=== PATIENT | male | born 1985 | race Caucasian/White ===

== ENCOUNTER → 2018-07-01 16:30 | Outpatient (CLI) | payer BC, SELFPAY ==
[2018-07-01 18:01] LABS: BUN Creatinine Ratio 18.8 (6-22); Blood Urea Nitrogen 15 mg/dL (9-20); Calcium 10.1 mg/dL (8.4-10.2); Carbon Dioxide 25 mmol/L (22-32); Chloride 100 mmol/L (98-107); Estimated Glomerular Filt Rate > 60.0 mL/min (>60); Glucose 91 mg/dL (70-100); HEMOLYSIS 16 (0-50); Sodium 140 mmol/L (137-145)
== END ==
PROVIDERS: PCP Family Medicine; Visit Provider Family Medicine
DX: I10 Essential (primary) hypertension (principal)
CPT/HCPCS: 36415; 80048

== ENCOUNTER 2018-08-13 20:28 | Emergency (ER) | payer BC, SELFPAY ==
--- NOTE | 2018-08-13 20:31 | ED_ITS ---
HPI - Extremity Injury (Upper) <GAVI Pitts - Last Filed: 08/13/18 22:04> General Chief Complaint: Wound/Laceration Stated Complaint: CUT RT WRIST Time Seen by Provider: 08/13/18 20:30 Source: patient Mode of arrival: ambulatory Limitations: no limitations History of Present Illness HPI narrative: 33-year-old male with history of hypertension and is a nonsmoker here for complaint of laceration to his right wrist. He states that he was using a razor knife to cut some material while working on a vehicle at home this evening when he accidentally cut his right wrist. He states the blade was clean. He denies any other injuries. Bleeding is controlled with pressure and bandage. He thinks that his last tetanus was over 10 years ago. No other concerns or complaints at this time. MD complaint: injury to: right and wrist Related Data Previous Rx's Medication Instructions Recorded phenytoin sodium extended 100 mg PO BID #360 cap 07/04/17 [Dilantin Extended] dextroamphetamine-amphetamine 20 1 tab PO TID #75 tab 07/01/18 mg tablet lisinopril 10 mg tablet 10 mg PO QDAY #90 tab 07/01/18 Allergies Allergy/AdvReac Type Severity Reaction Status Date / Time Sulfa (Sulfonamide Allergy Mild RED FACE, Verified 08/13/18 20:51 Antibiotics) GAINES Review of Systems <GAVI Pitts - Last Filed: 08/13/18 22:04> Constitutional Denies chills, Denies fever(s), Denies lethargy and Denies weakness Eyes Denies change in vision, Denies eye discharge, Denies irritation and Denies loss of vision ENT Ears, Nose, Mouth, and Throat: Denies change in voice, Denies neck pain and Denies sore throat Cardiovascular Denies chest pain, Denies irregular heart rhythm, Denies lightheadedness, Denies palpitations, Denies dyspnea, Denies dyspnea on exertion and Denies orthopnea Respiratory Denies cough, Denies dyspnea, Denies dyspnea on exertion and Denies wheezing Gastrointestinal Gastrointestinal: Denies abdominal pain, Denies change in bowel habits, Denies diarrhea, Denies nausea and Denies vomiting Genitourinary Denies hematuria, Denies flank pain, Denies urinary incontinence and Denies urinary urgency Musculoskeletal Denies neck pain Comments: Laceration to right wrist Integumentary/Breasts Denies pruritus, Denies erythema, Denies rash and Denies wounds Neurologic Denies confusion, Denies loss of vision and Denies weakness Psychiatric Denies anxiety, Denies confusion, Denies depression, Denies homicidal ideation and Denies suicidal ideation Endocrine Denies palpitations Hematologic/Lymphatic Denies easy bruising Allergic/Immunologic Denies wheezing Exam <GAVI Pitts - Last Filed: 08/13/18 22:04> Initial Vital Signs Initial Vital Signs: Vital Signs Temperature 98.7 F 08/13/18 20:35 Pulse Rate 109 H 08/13/18 20:35 Respiratory Rate 18 08/13/18 20:35 Blood Pressure 176/90 H 08/13/18 20:35 Pulse Oximetry 100 08/13/18 20:35 Const General: cooperative and well developed Nutritional Appearance: well nourished Orientation: alert, awake, oriented x3 and not confused HENKY Mouth: oral mucosae normal, oropharynx normal and moist mucous membranes Eyes Conjunctivae: conjunctivae normal Sclera: sclerae normal Pupils: PERRL EOM: EOM intact bilaterally Resp Effort & Inspection: normal respiratory effort, able to speak in complete sentences, no respiratory distress and no use of accessory muscles Auscultation: clear to auscultation bilaterally, no rales, no rhonchi and no wheezes Cardio Rate: regular rate Rhythm: regular rhythm Heart Sounds: no click, no gallops, no murmurs and no rubs Skin General: no rashes or lesions noted, No jaundice and No petechiae Neuro General: alert, oriented x3, gait normal and no focal motor deficits Speech: speech normal Extrem Other: 1.5 cm linear laceration to the ulnar palmar aspect of the right proximal hand. Distal sensation is intact. Distal range of motion is intact. Distal cap refill less than 2 sec. <Rosalia Hill DO - Last Filed: 08/14/18 00:47> Initial Vital Signs Initial Vital Signs: Vital Signs Temperature 98.7 F 08/13/18 20:35 Pulse Rate 109 H 08/13/18 20:35 Respiratory Rate 18 08/13/18 20:35 Blood Pressure 176/90 H 08/13/18 20:35 Pulse Oximetry 100 08/13/18 20:35 Procedures <GAVI Pitts - Last Filed: 08/13/18 22:04> Laceration Repair Laceration 1: Site: hand Side (If applicable): right Size (cm): 1.5 Description: linear Depth: simple, single layer Local Anesthetic: lidocaine 1% Amount of anesthesia used (mL): 2 Pre-repair: wound explored and irrigated extensively Skin layer closed with: nylon Size (cm): 5-0 Number of sutures: 3 Technique: simple, interrupted Course <GAVI Pitts - Last Filed: 08/13/18 22:04> Orders Ordered: Discontinued Medications Diphtheria/Tetanus/Acell Pertussis (Adacel) 0.5 ml IM .ONCE ONE Stop: 08/13/18 20:51 Last Admin: 08/13/18 21:10 Dose: 0.5 ml Vital Signs - 8 hr 08/13/18 20:35 08/13/18 21:29 Temperature 98.7 F Pulse Rate 109 H 85 Respiratory Rate 18 16 Blood Pressure [Left Arm] 176/90 H 126/81 Pulse Oximetry 100 100 <Rosalia Hill DO - Last Filed: 08/14/18 00:47> Orders Ordered: Discontinued Medications Diphtheria/Tetanus/Acell Pertussis (Adacel) 0.5 ml IM .ONCE ONE Stop: 08/13/18 20:51 Last Admin: 08/13/18 21:10 Dose: 0.5 ml Vital Signs - 8 hr 08/13/18 20:35 08/13/18 21:29 Temperature 98.7 F Pulse Rate 109 H 85 Respiratory Rate 18 16 Blood Pressure [Left Arm] 176/90 H 126/81 Pulse Oximetry 100 100 [facility] - Extremity Injury (Upper) <GAVI Pitts - Last Filed: 08/13/18 22:04> [facility] Narrative Medical decision making narrative: Laceration to the right palm was closed with 3 5-0 nylon simple interrupted sutures with good wound closure no complications. Wound dressed with bacitracin and a dressing. Sutures to be removed in 7-10 days. [id number] Tylenol or Motrin as needed for any discomfort. Follow up with primary care provider. Tetanus was updated in the emergency room. For any worsening symptoms or signs of infection return to the emergency room. Keep initial dressing on clean and dry for 24-36 hr afterwards stress wound daily with bacitracin dressing until healed. Discharge Plan Departure Patient Disposition: Home Clinical Impression: Laceration of right palm Discharge Date/Time: 08/13/18 21:36 Interventions: ED Discharge Assessment Last Done: 08/13/18 21:34 Instructions: DI for Laceration Repair Activity Restrictions/Additional Instructions: Laceration to right palm was closed with 3 sutures. Sutures to be removed in 7- 10 days. [id number] Tylenol or Motrin as needed for any discomfort. Follow up with primary care provider. Tetanus was updated in the emergency room. For any worsening symptoms or signs of infection return to the emergency room. Keep initial dressing on clean and dry for 24-36 hr afterwards stress wound daily with bacitracin dressing until healed. Prescriptions: No Action phenytoin sodium extended [Dilantin Extended] 100 MG capsule 100 mg PO BID Qty: 360 RF: 3 dextroamphetamine-amphetamine [Adderall] 20 mg tablet 1 tab PO TID Qty: 75 RF: 0 lisinopril 10 mg tablet 10 mg PO QDAY Qty: 90 RF: 3 Referrals: Shellie Lopez DO [Primary Care Provider] - <Rosalia Hill DO - Last Filed: 08/14/18 00:47> Cosign ED Attending Abnerature Attestation: I was immediately available in the department for consultation. Documentation has been reviewed. I agree with assessment and plan.
[2018-08-13 20:34] VITALS: BMI 32.1
[2018-08-13 20:35] VITALS: BP 176/90; PULSE 109; RESP 18; TEMP 37.1; O2SAT 100
[2018-08-13] MEDS: TET,DIPH,PERTUSS(ACELL),VAC/PF 0.5 ML SYRINGE IM (21:10)
[2018-08-13 21:29] VITALS: BP 126/81; PULSE 85; RESP 16; O2SAT 100
== END 2018-08-13 21:36 | disposition home or self-care (01) ==
PROVIDERS: Emergency Provider Nurse Practitioner Family; Family Provider Family Medicine; PCP Family Medicine
DX: S61.411A Laceration without foreign body of right hand, initial encounter (principal); W26.0XXA Contact with knife, initial encounter
CPT/HCPCS: 12001; 90471; 99283; 90715

== ENCOUNTER → 2021-04-10 08:09 | Outpatient (CLI) | payer OTHER, SELFPAY ==
--- NOTE | 2021-04-10 | DI.US.S_ITS ---
PROCEDURE: US ABDOMEN LIMITED INDICATIONS: ABNORMAL LFTS TECHNIQUE: Real-time focused scanning was performed of the abdomen, with image documentation. COMPARISON: None. FINDINGS: The liver demonstrates increased size. The liver demonstrates generalized mildly increased echogenicity. This decreases ultrasound sensitivity for detection of hepatic masses. The main portal vein demonstrates normal size and demonstrates normal appearing, hepatopetal flow. No findings of gallstones or sludge are seen. The gallbladder wall is not thickened, measuring 3 mm or less. No specific pericholecystic fluid is seen. The sonographic Saunders sign is negative. There is no biliary dilatation, the common bile duct measures 4 mm. No significant pancreatic abnormality is seen on these images. IMPRESSION: Enlarged, fatty liver. Dictated by: Navdeep Meza M.D. on 04/10/2021 at 9:05 Approved by: Navdeep Meza M.D. on 04/10/2021 at 9:06
== END ==
PROVIDERS: Family Provider Family Medicine; PCP Family Medicine; Referring Provider Family Medicine; Visit Provider Family Medicine
DX: R94.5 Abnormal results of liver function studies (principal); K76.0 Fatty (change of) liver, not elsewhere classified
CPT/HCPCS: 76705

== ENCOUNTER → 2022-01-30 11:51 | Outpatient (CLI) | payer OTHER, SELFPAY ==
--- NOTE | 2022-01-30 | DI.RAD.S_ITS ---
PROCEDURE: XR FINGER LT MIN 2V INDICATIONS: SWELLING, REDNESS OF LEFT INDEX FINGER TECHNIQUE: AP hand, 2 views of the left 2nd finger(s) acquired. COMPARISON: None. FINDINGS: Bones: No fractures or dislocations. No suspicious bony lesions. Soft tissues: No suspicious soft tissue calcifications. IMPRESSION: No fracture. No osseous lesion. If symptoms and/or clinical suspicion for pathology persists, further assessment with repeat radiographs (7-10 days) or advanced imaging (e.g. CT, MRI or bone scan) should be considered. Dictated by: Vane Gudino MD, PhD on 01/30/2022 at 16:41 Approved by: Vane Gudino MD, PhD on 01/30/2022 at 16:42
== END ==
PROVIDERS: Family Provider Family Medicine; PCP Family Medicine; Referring Provider Family Medicine; Visit Provider Family Medicine
DX: M79.89 Other specified soft tissue disorders (principal)
CPT/HCPCS: 73140

== ENCOUNTER → 2022-12-15 11:24 | Outpatient (CLI) | payer OTHER, SELFPAY ==
--- NOTE | 2022-12-15 11:26 | DI.RAD.S_ITS ---
PROCEDURE: XR FINGER LT MIN 2V INDICATIONS: Swelling TECHNIQUE: AP hand, 2 views of the 4th finger(s) acquired. COMPARISON: [facility], , XR FINGER LT MIN 2V, 01/30/2022, 11:44. FINDINGS: Bones: No fractures or dislocations. No suspicious bony lesions. Soft tissues: No suspicious soft tissue calcifications. IMPRESSION: No acute fracture. No osseous lesion. If symptoms and/or clinical suspicion for pathology persist, further assessment with repeat, or advanced imaging (e.g., CT, MRI, or bone scan) may be helpful for further assessment. Dictated by: Jaylen Scanlon M.D. on 12/15/2022 at 11:03 Approved by: Jaylen Scanlon M.D. on 12/15/2022 at 11:03
== END ==
PROVIDERS: Family Provider Family Medicine; PCP Family Medicine; Referring Provider Nurse Practitioner Family; Visit Provider Nurse Practitioner Family
DX: R22.32 Localized swelling, mass and lump, left upper limb (principal)
CPT/HCPCS: 73140

== ENCOUNTER → 2023-01-17 07:50 | Outpatient (CLI) | payer OTHER, SELFPAY ==
[2023-01-17 09:18] LABS: Add Manual Diff / Slide Review NO; Basophils Absolute Auto 0 /uL (0-100); Basophils Percent Auto 0.5 % (0-2); Eosinophils Absolute Auto 0 /uL (0-450); Eosinophils Percent Auto 0.3 % (2-4); Hematocrit 42.2 % (41-53); Hemoglobin 14.9 g/dL (13.5-17.5); Lymphocytes Absolute Auto 1000 /uL (1100-4500); Lymphocytes Percent Auto 17.9 % (25-40); Mean Corpuscular HGB Conc 35.3 % (30-36); Mean Corpuscular Hemoglobin 31.3 PG (26-34); Mean Corpuscular Volume 88.6 fL (80-100); Monocytes Absolute Auto 600 /uL (0-900); Monocytes Percent Auto 9.9 % (3-14); Neutrophils Absolute Auto 4000 /uL (1500-7000); Neutrophils Percent Auto 71.4 % (50-75); Platelet Count 246 X10^3/uL (150-400); Red Blood Cell Count 4.76 X10^6/uL (4.5-5.9); Red Cell Distribution Width 13.6 % (11.6-14.8); White Blood Cell Count 5.6 X10^3/uL (4.5-11.0)
[2023-01-17 09:47] LABS: Alanine Aminotransferase 65 IU/L (<50); Albumin 4.8 g/dL (3.5-5.0); Albumin Globulin Ratio 1.2 (1.0-2.8); Alkaline Phosphatase 151 U/L (38-126); Aspartate Aminotransferase 54 IU/L (17-59); BUN Creatinine Ratio 17.1 (6-22); Bilirubin Total 0.4 mg/dL (0.2-1.3); Blood Urea Nitrogen 14 mg/dL (9-20); Calcium 9.8 mg/dL (8.4-10.2); Carbon Dioxide 26 mmol/L (22-32); Chloride 97 mmol/L (98-107); Cholesterol 246 mg/dL (140-199); Estimated Glomerular Filt Rate > 60 mL/min (>60); Globulin 3.9 g/dL (1.7-4.1); Glucose 110 mg/dL (70-100); HDL Cholesterol 41 mg/dL (40-60); HEMOLYSIS < 15 (0-50); Potassium 4.8 mmol/L (3.4-5.1); Sodium 135 mmol/L (137-145); Total Protein 8.7 g/dL (6.3-8.2)
[2023-01-17 10:11] LABS: Prostate Specific Antigen 0.474 ng/mL (0.10-4.00)
[2023-01-17 10:14] LABS: Testosterone 269 ng/dL (132-813)
[2023-01-17 10:18] LABS: Thyroid Stimulating Hormone 3.13 uIU/mL (0.47-4.68)
[2023-01-17 11:02] LABS: Follicle Stimulating Hormone 3.36 mIU/mL; Luteinizing Hormone 3.33 mIU/mL
[2023-01-18 03:05] LABS: Labcorp Hemoglobin (Hb) A1c 5.4 % (4.8-5.6)
== END ==
PROVIDERS: Family Provider Family Medicine; Referring Provider Family Medicine; Visit Provider Family Medicine
DX: N46.9 Male infertility, unspecified (principal)
CPT/HCPCS: 36415; 80053; 82465; 83001; 83002; 83036; 83718; 84153; 84403; 84443; 85025

== ENCOUNTER → 2023-01-18 07:16 | Outpatient (CLI) | payer OTHER, SELFPAY ==
[2023-01-18 08:59] LABS: Testosterone 281 ng/dL (132-813)
== END ==
PROVIDERS: Family Provider Family Medicine; Referring Provider Family Medicine; Visit Provider Family Medicine
DX: N46.9 Male infertility, unspecified (principal)
CPT/HCPCS: 36415; 84403

== ENCOUNTER → 2023-02-26 15:51 | Outpatient (CLI) | payer OTHER, SELFPAY ==
--- NOTE | 2023-02-26 | DI.RAD.S_ITS ---
PROCEDURE: XR EYE FOREIGN BODY RT INDICATIONS: RULE OUT METAL FRAGMENTS PRIOR TO MRI TECHNIQUE: A single view of the orbits was acquired. COMPARISON: None. FINDINGS: Soft tissues: No metallic foreign bodies are visualized around the orbits. Bones: Bony structures appear unremarkable. Visualized sinuses appear clear. IMPRESSION: No metallic fragments. Cleared for MRI Approved by: Colby Franco M.D. on 02/26/2023 at 18:57
== END ==
PROVIDERS: Family Provider Family Medicine; PCP Family Medicine; Referring Provider Podiatrist; Visit Provider Podiatrist
DX: Z77.018 Contact with and (suspected) exposure to other hazardous metals (principal)
CPT/HCPCS: 70030

== ENCOUNTER → 2023-05-30 14:30 | Outpatient (ROUT) | payer OTHER, SELFPAY ==
[2023-05-30 14:50] LABS: Alanine Aminotransferase 55 IU/L (<50); Albumin 4.7 g/dL (3.5-5.0); Albumin Globulin Ratio 1.4 (1.0-2.8); Alkaline Phosphatase 106 U/L (38-126); Aspartate Aminotransferase 53 IU/L (17-59); BUN Creatinine Ratio 15.5 (6-22); Bilirubin Total 0.4 mg/dL (0.2-1.3); Bilirubin Unconjugated 0.3 mg/dL (0.0-1.1); Blood Urea Nitrogen 13 mg/dL (9-20); Calcium 9.9 mg/dL (8.4-10.2); Carbon Dioxide 27 mmol/L (22-32); Chloride 101 mmol/L (98-107); Estimated Glomerular Filt Rate > 60 mL/min (>60); Globulin 3.3 g/dL (1.7-4.1); Glucose 118 mg/dL (70-100); HEMOLYSIS < 15 (0-50); Phosphorous 3.1 mg/dL (2.5-4.5); Potassium 4.4 mmol/L (3.4-5.1); Sodium 137 mmol/L (137-145); Uric Acid 8.3 mg/dL (3.5-8.5)
== END ==
PROVIDERS: Family Provider Family Medicine; PCP Family Medicine; Visit Provider Family Medicine
DX: M10.041 Idiopathic gout, right hand (principal)
CPT/HCPCS: 80069; 80076; 84550

== ENCOUNTER → 2023-09-09 14:30 | Outpatient (ROUT) | payer OTHER, SELFPAY ==
[2023-09-09 16:06] LABS: Thyroid Stimulating Hormone 3.47 uIU/mL (0.47-4.68)
== END ==
PROVIDERS: Family Provider Family Medicine; PCP Family Medicine; Visit Provider Family Medicine
DX: M10.9 Gout, unspecified (principal); E03.9 Hypothyroidism, unspecified
CPT/HCPCS: 84443; 84550

== ENCOUNTER → 2024-01-15 11:24 | Outpatient (CLI) | payer BC, SELFPAY ==
[2024-01-15 12:10] LABS: Add Manual Diff / Slide Review NO; Basophils Absolute Auto 0 /uL (0-100); Basophils Percent Auto 0.4 % (0-2); Eosinophils Absolute Auto 0 /uL (0-450); Eosinophils Percent Auto 0.3 % (2-4); Hematocrit 48.5 % (41-53); Lymphocytes Absolute Auto 1300 /uL (1100-4500); Lymphocytes Percent Auto 20.6 % (25-40); Mean Corpuscular HGB Conc 35.1 % (30-36); Mean Corpuscular Volume 91.2 fL (80-100); Monocytes Absolute Auto 600 /uL (0-900); Monocytes Percent Auto 9.8 % (3-14); Neutrophils Absolute Auto 4400 /uL (1500-7000); Neutrophils Percent Auto 68.9 % (50-75); Platelet Count 238 X10^3/uL (150-400); Red Blood Cell Count 5.32 X10^6/uL (4.5-5.9); White Blood Cell Count 6.4 X10^3/uL (4.5-11.0)
[2024-01-15 12:26] LABS: Alanine Aminotransferase 91 IU/L (<50); Albumin 5.1 g/dL (3.5-5.0); Albumin Globulin Ratio 1.2 (1.0-2.8); Alkaline Phosphatase 120 U/L (38-126); Aspartate Aminotransferase 81 IU/L (17-59); BUN Creatinine Ratio 15.5 (6-22); Bilirubin Total 0.9 mg/dL (0.2-1.3); Blood Urea Nitrogen 16 mg/dL (9-20); Carbon Dioxide 25 mmol/L (22-32); Chloride 103 mmol/L (98-107); Cholesterol 249 mg/dL (140-199); Estimated Glomerular Filt Rate > 60 mL/min (>60); Globulin 4.3 g/dL (1.7-4.1); Glucose 111 mg/dL (70-100); HDL Cholesterol 51 mg/dL (40-60); HEMOLYSIS < 15 (0-50); Potassium 5.2 mmol/L (3.4-5.1); Sodium 139 mmol/L (137-145); Total Protein 9.4 g/dL (6.3-8.2); Triglycerides 404 mg/dL (35-150); Uric Acid 8.2 mg/dL (3.5-8.5)
[2024-01-15 13:03] LABS: TSH w/ Reflex to FT4 2.78 uIU/mL (0.47-4.68)
[2024-01-15 13:15] LABS: Vitamin B12 440 pg/mL (239-931)
== END ==
PROVIDERS: Family Provider Family Medicine; PCP Family Medicine; Referring Provider Family Medicine; Visit Provider Family Medicine
DX: Z13.220 Encounter for screening for lipoid disorders (principal); Z13.21 Encounter for screening for nutritional disorder; I10 Essential (primary) hypertension; E03.9 Hypothyroidism, unspecified; M10.9 Gout, unspecified; Z13.0 Encounter for screening for diseases of the blood and blood-forming organs and certain disorders involving the immune mechanism; F90.9 Attention-deficit hyperactivity disorder, unspecified type
CPT/HCPCS: 36415; 80053; 80061; 82306; 82607; 84443; 84550; 85025

== ENCOUNTER → 2024-08-07 09:12 | Outpatient (CLI) | payer BC, SELFPAY ==
[2024-08-07 09:54] LABS: Hematocrit 45.6 % (41-53); Hemoglobin 16.2 g/dL (13.5-17.5); Mean Corpuscular HGB Conc 35.5 % (30-36); Mean Corpuscular Hemoglobin 32.2 PG (26-34); Mean Corpuscular Volume 90.5 fL (80-100); Platelet Count 298 X10^3/uL (150-400); Red Blood Cell Count 5.04 X10^6/uL (4.5-5.9); Red Cell Distribution Width 12.9 % (11.6-14.8); White Blood Cell Count 8.1 X10^3/uL (4.5-11.0)
[2024-08-07 10:13] LABS: Hemoglobin A1C% w Est Avg Glu 5.3 % (4.0-6.0)
[2024-08-07 10:20] LABS: Alanine Aminotransferase 102 IU/L (<50); Albumin 4.7 g/dL (3.5-5.0); Albumin Globulin Ratio 1.3 (1.0-2.8); Alkaline Phosphatase 137 U/L (38-126); Aspartate Aminotransferase 105 IU/L (17-59); Bilirubin Total 0.9 mg/dL (0.2-1.3); Blood Urea Nitrogen 12 mg/dL (9-20); Carbon Dioxide 24 mmol/L (22-32); Chloride 100 mmol/L (98-107); Cholesterol 249 mg/dL (140-199); Estimated Glomerular Filt Rate > 60 mL/min (>60); Globulin 3.6 g/dL (1.7-4.1); Glucose 103 mg/dL (70-100); HDL Cholesterol 44 mg/dL (40-60); HEMOLYSIS 16 (0-50); LDL Cholesterol Calculated 135 mg/dL (<100); Potassium 4.9 mmol/L (3.4-5.1); Sodium 132 mmol/L (137-145); Total Protein 8.3 g/dL (6.3-8.2); Triglycerides 349 mg/dL (35-150)
== END ==
PROVIDERS: Family Provider Family Medicine; PCP Family Medicine; Referring Provider Family Medicine; Visit Provider Family Medicine
DX: R73.01 Impaired fasting glucose (principal); E87.5 Hyperkalemia; I10 Essential (primary) hypertension; E78.2 Mixed hyperlipidemia; R74.8 Abnormal levels of other serum enzymes
CPT/HCPCS: 36415; 80053; 80061; 83036; 85027